=== PATIENT | female | born 1980 | race Caucasian/White ===

== ENCOUNTER 2019-05-24 15:15 | Outpatient (CLI) | payer BC ==
--- NOTE | 2019-05-24 15:54 | RAD ---
EXAM: CHEST TWO VIEWS: 05/24/19 HISTORY: Chronic coughing. FINDINGS: Heart size is normal. The lungs are clear. No confluent pneumonia, overt edema, or other acute proc ess. IMPRESSION: No acute intrathoracic disease. POS: OFF
== END 2019-05-24 15:16 | disposition home or self-care (01) ==
LOC: BICRAD 15:15
PROVIDERS: ATTEND Family Medicine
DX: R05 Cough (principal)
CPT/HCPCS: 71046

== ENCOUNTER 2019-08-12 14:59 | Emergency (ER) | payer BC ==
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
[2019-08-12] MEDS ORDERED: HYDROcodone/Acetaminophen 5/325 mg Tablet ONE (17:03)
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
[2019-08-12] MEDS ORDERED: Ketorolac Tromethamine 30 MG/ML VIAL ONE (17:31)
== END 2019-08-12 17:40 | disposition home or self-care (01) ==
LOC: ERS 14:59
DX: M54.2 Cervicalgia (principal); M25.552 Pain in left hip; I10 Essential (primary) hypertension; M19.90 Unspecified osteoarthritis, unspecified site; F41.9 Anxiety disorder, unspecified; F32.9 Major depressive disorder, single episode, unspecified; F90.9 Attention-deficit hyperactivity disorder, unspecified type; Z79.899 Other long term (current) drug therapy; V43.52XA Car driver injured in collision with other type car in traffic accident, initial encounter
CPT/HCPCS: 72125; 72170; 96372; J1885